=== PATIENT | male | born 2000 | race Hispanic/Latino ===

== ENCOUNTER 2024-02-27 22:04 | Emergency (ER) | payer BC ==
[~2024-02-27] VITALS: Ht 177.8 cm; Wt 84.8 kg
[2024-02-27 23:28] LABS: BASOPHILS # (AUTO) 0.03 K/uL (0.00-0.20); BASOPHILS % (AUTO) 0.2 % (0.0-5.0); EOSINOPHILS # (AUTO) 0.02 K/uL (0.00-0.70); EOSINOPHILS % (AUTO) 0.2 % (0.0-8.0); HEMATOCRIT 45.1 % (42-54); IMMATURE GRANULOCYTE ABSOLUTE 0.06 K/uL (0-1); LYMPHOCYTES % (AUTO) 15.5 % (21.0-51.0); MEAN CORPUSCULAR HEMOGLOBIN 29.9 pg (27.0-33.0); MEAN CORPUSCULAR HGB CONC 35.3 g/dL (32.0-36.0); MEAN CORPUSCULAR VOLUME 84.9 fL (79-99); MONOCYTES # (AUTO) 1.6 K/uL (0.1-1.0); MONOCYTES % (AUTO) 12.3 % (3.0-13.0); NEUTROPHILS # (AUTO) 9.4 K/uL (1.8-7.7); NEUTROPHILS % (AUTO) 71.3 % (40.0-77.0); PLATELET COUNT (AUTO) 321 K/uL (130-400); RED BLOOD CELL COUNT(AUTO) 5.31 MIL/uL (4.50-6.20); RED CELL DISTRIBUTION WIDTH 13.3 % (11.0-15.5); WHITE BLOOD COUNT (AUTO) 13.2 K/uL (4.8-10.8)
[2024-02-27] MEDS: ONDANSETRON 4MG INJ IVP ONE (23:37)
[2024-02-27 23:39] LABS: ADD UA MICROSCOPIC NO; APPEARANCE,URINE CLEAR (CLEAR); BILIRUBIN,URINE NEGATIVE (NEGATIVE); COLOR,URINE COLORLESS (YELLOW); GLUCOSE, URINE (UA) NEGATIVE (NEGATIVE); KETONES,URINE NEGATIVE (NEGATIVE); LEUKOCYTE ESTERASE ,URINE NEGATIVE Leu/uL (NEGATIVE); NITRATE,URINE NEGATIVE (NEGATIVE); OCCULT BLOOD,URINE NEGATIVE (NEGATIVE); PROTEIN,URINE NEGATIVE (NEGATIVE); UROBILINOGEN,URINE 0.2 mg/dL (0.2-1.0)
[2024-02-27 23:47] LABS: ALBUMIN 4.1 g/dL (3.5-5.0); BILIRUBIN,TOTAL 0.4 mg/dL (0.2-1.0); CREATININE 1.3 mg/dL (0.5-1.3); POTASSIUM 3.6 mmol/L (3.5-5.1); TOTAL PROTEIN, SERUM 7.5 g/dL (6.0-8.3)
[2024-02-28 01:08] VITALS: BP 135/83; PULSE 57; RESP 18; O2SAT 98
== END 2024-02-28 01:27 | disposition home or self-care (01) ==
LOC: EDH 22:04
DX: R07.89 Other chest pain (principal); I10 Essential (primary) hypertension; D72.829 Elevated white blood cell count, unspecified
CPT/HCPCS: 99284; 96374; 84484; 80053; 83690; 85025; 81003; 36415; 93005; J2405

== ENCOUNTER 2025-01-03 23:07 | Emergency (ER) | payer BC ==
[~2025-01-03] VITALS: Ht 177.8 cm; Wt 88.0 kg
[2025-01-03] MEDS: HYDROcodone/APAP 5/325 1 TAB TABLET PO ONE (23:28)
[2025-01-03] MEDS: AMOX/CLAV 875/125MG TAB PO ONE (23:28)
[2025-01-03] MEDS: teTANUS/diphthERIA TOXOID [ADULT] 0.5 ML VIAL IM ONE (23:30)
--- NOTE | 2025-01-03 23:47 | NUR ---
[facility] OFFICE WAS CALLED TO REPORT ANIMAL BITE.
--- NOTE | 2025-01-04 00:21 | NUR ---
WOUND CARE WAS DONE TO RIGHT SIDE OF CARE. 5 SMALL SUPERFICIAL WOUNDS NOTED TO RIGHT CHEEK AND BRIDGE OF NOSE. WOUND CARE INSTRUCTIONS GIVEN TO PT AND FAMILY.
[2025-01-04] MEDS ORDERED: IBUP-2070 PO (00:25)
[2025-01-04] MEDS ORDERED: AMOX1TAB16 PO (00:25)
--- NOTE | 2025-01-04 00:34 | ERN ---
ED Note History of Present Illness Stated Complaint: DOG BITE Chief Complaint: Animal Bite Time Seen by MD: 23:12 Time Seen by Midlevel: 23:15 Dictation: Mr. Mancuso is a 24-year-old male with no reported chronic health issues who presented to the emergency department this evening for evaluation after dog bite. He states that he was breaking up a dog fight esterase dog bit him in the face. He has five very small puncture/bite wounds to the right side of his face/cheek each measures less than 0.5 cm. No bleeding. There is minimal swelling. He has applied an ice pack. He does not know when he received his last tetanus shot. The small breed dog was a stray/owner operator unknown. Vaccination status unknown. He denies fever, chills, shortness of breath, cough, chest pain, palpitations, edema, abdominal pain, nausea, vomiting, hematemesis, constipation, diarrhea, melena, hematochezia, dysuria, headache, dizziness, or focal weakness/paresthesia Allergies: Coded Allergies: No Known Drug Allergies (Unverified Allergy, Unknown, 02/27/24) Past Medical History Past Medical History: Hypertension Surgical History: None PSYCH History: no pertinent psych hx Social History: Negative, Lives with family RN Note Reviewed/Agreed w/PFSH: Yes Review of System Dictation REVIEW OF SYSTEMS: CONSTITUTIONAL: Patient denies fevers, chills, sweats and weight changes. EYES: Patient denies any visual symptoms. EARS, NOSE, AND THROAT: No difficulties with hearing. No symptoms of rhinitis or sore throat. CARDIOVASCULAR: Patient denies chest pains, palpitations, orthopnea and paroxysmal nocturnal dyspnea. RESPIRATORY: No dyspnea on exertion, no wheezing or cough. GI: No nausea, vomiting, diarrhea, constipation, abdominal pain, hematochezia or melena. : No urinary hesitancy or dribbling. No nocturia or urinary frequency. No abnormal urethral discharge. MUSCULOSKELETAL: No myalgias or arthralgias. NEUROLOGIC: No chronic headaches, no seizures. Patient denies numbness, tingling or weakness. PSYCHIATRIC: Patient denies problems with mood disturbance. No problems with anxiety. ENDOCRINE: No excessive urination or excessive thirst. DERMATOLOGIC: Reports dog bite to right side of face/cheek Initial Vital Sign VS Vital Signs Date Time Temp Pulse Resp B/P (MAP) Pulse Ox O2 Delivery O2 Flow Rate FiO2 01/03/25 23:08 97.9 80 16 137/93 99 Room Air Physical Exam Dictation Vital signs: Reviewed. Constitutional: No acute distress. Non-toxic appearing. Head/Face: Normocephalic, atraumatic. Eyes: Periorbital areas with no swelling, redness, or edema. Lids and lashes are normal. Conjunctival injection is absent. Sclera anicteric. Pupils equal, round, reactive to light. ENT: Pinnas intact and no signs of trauma or erythema. Ear canals clear and no discharge. TMs no erythema. No nasal discharge or bleeding noted. Oropharynx with no exudate, redness, swelling, masses, exudates, or evidence of o bstruction. Uvula midline. Mucous membranes moist. Neck: Trachea midline, no masses palpated, and no cervical lymphadenopathy. No swelling. Supple, full range of motion. Chest/Axilla: No tenderness, no crepitus, no paradoxical movement, no retractions. Cardiovascular: Regular rate, regular rhythm, no murmur, no gallops. Symmetric pulses. No peripheral edema. Respiratory: Respirations even and unlabored. Lung sounds clear; no wheezes, rales or rhonchi. Gastrointestinal: Inspection is normal. No distention is appreciated. Bowel sounds are normal. No mass or organomegaly . There is no tenderness. No rebound. No rigidity. No voluntary or involuntary guarding. No No's sign. Neurological: Normal speech, gross motor function intact, gross sensory functio n intact. No focal weakness/Paresthesia. Musculoskeletal/Extremities: All extremities have full range of motion, no pain or tenderness on palpation. Symmetric pulses. Integumentary: Skin is normal color, warm and dry. Cap refill less than 2 seconds. There are five very small (approximately 0.25cm) puncture wounds to right cheek. No bleeding. There is minimal surrounding edema/erythema ED Course ED Course Orders Procedure Category Date Status Time *Nursing CPOE 01/03/25 Transmitted Communication: 23:18 Tetanus,Diphtheria PHA 01/03/25 Complete Tox [Adult] (Diphther 23:30 Amox/Clav 875/125mg PHA 01/03/25 Complete Tab (Augmentin 875-1 23:30 Hydrocodone/Apap PHA 01/03/25 Complete 5/325 (Davey 5/325mg) 23:30 Current Medications Medications (Trade) Dose Ordered Sig/Frandy Route PRN Reason Start Time Stop Time Status Last Admin Dose Admin Acetaminophen/ Hydrocodone Bitart (NORco 5/325MG) 1 tab ONCE ONCE PO 01/03/25 23:30 01/03/25 23:31 DC 01/03/25 23:28 Amoxicillin/ Clavulanate Potassium (Augmentin 875-125 Tablet) 1 each ONCE ONCE PO 01/03/25 23:30 01/03/25 23:31 DC 01/03/25 23:28 Tetanus/ Diphtheria Toxoids Adsorbed (DiphthERIA-teTANUS TOXOID [ADULT]/ DECAVAC) 0.5 ml ONCE ONCE IM 01/03/25 23:30 01/03/25 23:31 DC 01/03/25 23:30 Vital Signs Date Time Temp Pulse Resp B/P (MAP) Pulse Ox O2 Delivery O2 Flow Rate FiO2 01/03/25 23:08 97.9 80 16 137/93 99 Room Air Uneventful ED course. Vital signs stable; normotensive and afebrile with room air SpO2 99%. Small puncture wounds to the right cheek; sutures not needed. No drainage. There is minimal surrounding erythema. Tender to touch. Wounds were copiously irrigated; no foreign body/tooth noted. Triple antibiotic ointment was applied. Room he received tetanus toxoid update as well as initial dose of antibiotics; Augmentin. Findings were discussed with patient and significant other and all questions were answered. Medical Decision Making MDM MDM: Differential diagnosis: Dog bite, foreign body face Rationale: Tests considered and ordered secondary to shared decision making include: Examination Previous outside records reviewed: Old ER visits. Risk of complication and/or morbidity or mortality of patient management: None Medications-Per medication reconciliation Need for hospitalization: Patient does not meet criteria for hospitalization. Need for emergency major/minor surgery: No There are no social concerns with this patient. Prescription drug management: Augmentin, ibuprofen Prescriptions will include symptomatic care Patient's prior external medical records from other ER visits were reviewed by me as indicated. Prior testing and results from previous visits were reviewed. Prior tests were taken into account with medical decision making and resource utilization, independent historian/historians were used to obtain complete medical history. I independently interpreted the test that were performed, results were reviewed by me and considered findings on radiology if ordered. Medical management and examination interpretation discussions were had by me with other qualified healthcare professionals as indicated for the patient's care. DX & DISP Disposition: Discharge Departure Impression: Primary Impression: Dog bite Condition: Stable Scripts Ibuprofen (Ibuprofen) 600 Mg Tablet 600 MG PO Q6H PRN for PAIN, #15 TAB 0 Refills Prov: LUIS MOURA NP 01/04/25 Amoxicillin/Potassium Clav (Amox Tr-K Clv 875-125 mg Tab) 875 Mg-125 Mg Tablet 1 TAB PO BID for 10 Days, #20 TAB 0 Refills Prov: LUIS MOURA [employer] 01/04/25 Additional Instructions: Rest. Drink plenty of fluids. Wash her hands frequently. Wash gently with mild soap and water and pat dry. May apply antibiotic topical ointment. Wear sunscreen/hat. Continue antibiotic with Augmentin twice daily for 10 days. May take [id number] Tylenol or ibuprofen as needed for discomfort. Follow up with Law enforcement/animal control/public health department. Return to the emergency department for any worsening of symptoms or concerns. Referrals: VIRY REY (PCP) Time of Disposition: 00:28 LUIS MOURA NP Jan 04, 2025 00:34
[2025-01-04 00:38] VITALS: BP 128/84; PULSE 74; RESP 18; TEMP 97.7; O2SAT 99
== END 2025-01-04 00:46 | disposition home or self-care (01) ==
LOC: EDH 23:07
DX: S01.431A Puncture wound without foreign body of right cheek and temporomandibular area, initial encounter (principal); I10 Essential (primary) hypertension; W54.0XXA Bitten by dog, initial encounter; Y93.89 Activity, other specified; Y92.89 Other specified places as the place of occurrence of the external cause; Y99.8 Other external cause status
CPT/HCPCS: 90471; 90714; 99284

== ENCOUNTER 2025-07-04 20:01 | Emergency (ER) | payer BC ==
[~2025-07-04] VITALS: Ht 175.3 cm; Wt 83.9 kg
[~2025-07-04 20:01] MED LIST: AMOX1TAB16 PO; IBUP-1492 PO
--- NOTE | 2025-07-04 20:24 | ERN ---
ED Note History of Present Illness Stated Complaint: CHEST TIGHTNESS, TROUBLE BREATHING, HIGH B/P, DIZZ Chief Complaint: Chest Pain Time Seen by MD: 20:08 Time Seen by Midlevel: 20:08 Dictation: The patient is a 25-year-old male with a history of hypertension who presents to the emergency department with complaints of three days of on and off chest pain. Patient reports some chest pressure to the left side of his chest. Reports sharp pains only lasting a few sec. reports he had a elevated blood pressure today of 168/84. Reports some shortness of breath. Patient denies cough, recent travel or surgeries, chest trauma. Allergies: Coded Allergies: No Known Drug Allergies (Unverified Allergy, Unknown, 02/27/24) Home Meds Active Scripts Ibuprofen (Ibuprofen) 600 Mg Tablet, 600 MG PO Q6H PRN for PAIN, #15 TAB 0 Refills Prov:LUIS MOURA [facility] 01/04/25 Amoxicillin/Potassium Clav (Amox Tr-K Clv 875-125 mg Tab) 875 Mg-125 Mg Tablet, 1 TAB PO BID for 10 Days, #20 TAB 0 Refills Prov:LUIS MOURA [facility] 01/04/25 Past Medical History Past Medical History: Hypertension Surgical History: None Social History: Negative, Lives with family RN Note Reviewed/Agreed w/PFSH: Yes Review of System Dictation Constitutional: Negative for fever,chills, and weight loss Eyes: Negative for injury, pain,redness, and discharge ENT: Negative for injury,pain or swelling Cardiovascular: Negative for palpitations, and edema positive for chest pain Respiratory: Negative for cough, and wheezing, positive for shortness of breath Abdomen/GI: Negative for abdominal pain, nausea, vomiting, diarrhea, and constipation Back: Negative for injury and pain : Negative for injury, bleeding and discharge MS/Extremity: Negative for injury and deformity Skin: Negative for rash, and discoloration Neuro: Negative for headache, weakness, numbness, tingling, and seizure Psych: Negative for suicide ideation, homicidal ideation, and hallucinations Initial Vital Sign VS Vital Signs Date Time Temp Pulse Resp B/P (MAP) Pulse Ox O2 Delivery O2 Flow Rate FiO2 07/04/25 20:04 98.2 97 20 135/63 99 0 07/04/25 21:25 Room Air* 21 Physical Exam Dictation Vital Signs reviewed General Appearance: Alert, oriented x 3, no acute distress, well developed, nourished. Head and Face: non-traumatic. Eyes: PERRL, pink conjunctivas, eyelid no trauma, anterior chamber with arcus senilis. Ears: Pinnas intact and no signs of trauma or erythema ear canals clear and no discharge TM no erythema Nose: No discharge, no bleeding. Oropharynx: Mouth normal, tongue pink. pharynx clear,no erythema, tonsils no exudates, no abscesses noted, mucous membrane moist Neck: Supple, non-tender, no thyromegaly, no masses, no JVD, no bruits Breast:Deferred Chest:No tenderness, no crepitus, no paradoxical movement, no retractions Lungs:Clear, well-ventilated, symmetric, no rales, no wheezing, no rhonchi, no stridor, good breath sounds bilaterally Heart: Regular rate, regular rhythm, no murmur, no gallops Vascular: no peripheral edema, Abdomen: Soft, positive bowel sounds, nondistended, no guarding, nontender, no rebound, no masses no hepatomegaly, no splenomegaly, no No's sign, no hernias. Rectal: Deferred Genital: Deferred Neurological: Normal speech, motor function intact, sensory function intact Musculoskeletal: Neck nontender, full range of motion, back nontender, full range of motion, Extremities: nontender, full range of motion Skin: Color pink, dry, no turgor, no rash, no lacerations, no abrasions, no contusions. Lymphatic: Deferred Results (Laboratory/Radiology) Laboratory/Radiology Laboratory Tests Test 07/04/25 20:00 07/04/25 20:17 Urine Opiates Screen NEGATIVE (NEGATIVE) Urine Barbiturates Screen NEGATIVE (NEGATIVE) Urine Phencyclidine Screen NEGATIVE (NEGATIVE) Urine Amphetamines Screen NEGATIVE (NEGATIVE) Urine Benzodiazepines Screen NEGATIVE (NEGATIVE) Urine Cocaine Screen NEGATIVE (NEGATIVE) Urine Marijuana (THC) Screen NEGATIVE (NEGATIVE) White Blood Count 9.4 K/uL (4.8-10.8) Red Blood Count 5.25 MIL/uL (4.50-6.20) Hemoglobin 15.4 g/dL (14.0-18.0) Hematocrit 46.0 % (42-54) Mean Corpuscular Volume 87.6 fL (79-99) Mean Corpuscular Hemoglobin 29.3 pg (27.0-33.0) Mean Corpuscular Hemoglobin Concent 33.5 g/dL (32.0-36.0) Red Cell Distribution Width 12.8 % (11.0-15.5) Platelet Count 297 K/uL (130-400) Mean Platelet Volume 10.9 fL (7.5-10.5) H Immature Granulocyte % (Auto) 0.5 % (0-1) Neutrophils (%) (Auto) 58.1 % (40.0-77.0) Lymphocytes (%) (Auto) 25.5 % (21.0-51.0) Monocytes (%) (Auto) 9.1 % (3.0-13.0) Eosinophils (%) (Auto) 6.1 % (0.0-8.0) Basophils (%) (Auto) 0.7 % (0.0-5.0) Neutrophils # (Auto) 5.5 K/uL (1.8-7.7) Lymphocytes # (Auto) 2.4 K/uL (1.0-4.8) Monocytes # (Auto) 0.9 K/uL (0.1-1.0) Eosinophils # (Auto) 0.57 K/uL (0.00-0.70) Basophils # (Auto) 0.07 K/uL (0.00-0.20) Absolute Immature Granulocyte (auto 0.05 K/uL (0-1) Nucleated Red Blood Cells 0.0 % (0.0-0.19) Sodium Level 134 mmol/L (136-145) L Potassium Level 3.6 mmol/L (3.5-5.1) Chloride Level 100 mmol/L (101-111) L Carbon Dioxide Level 31 mmol/L (21-32) Blood Urea Nitrogen 9 mg/dL (7-18) Creatinine 1.1 mg/dL (0.5-1.3) Glomerular Filtration Rate Calc 95 mL/min (>90) Random Glucose 96 mg/dL (70-105) Total Calcium 9.1 mg/dL (8.5-10.1) Magnesium Level 2.00 mg/dL (1.80-2.40) Total Creatine Kinase 133 U/L (21-232) Troponin I High Sensitivity 5 ng/L (4-75) Lipase 47 U/L (16-77) REASON: cp ORDERING PHYSICIAN: KAELYN TAVERA PROCEDURE: CXR1VW - CHEST 1VW EXAM: CR Chest, 1 View. CLINICAL HISTORY: cp COMPARISON: None provided. FINDINGS: LUNGS: There is no mass, infiltrate, or acute pulmonary abnormality. PLEURAL SPACES: No pleural effusion or pneumothorax. MEDIASTINUM: Cardiac size and mediastinal contours within normal limits. BONES: No aggressive appearing osseous lesion seen. IMPRESSION: No acute cardiopulmonary pathology is evident. /[place] Labs Reviewed?: Yes EKG: (+) rhythm (Sinus rhythm) EKG Comment: Date:07/04/2025 Time:1999 Ventricular rate:94 CA interval:132 QRS duration:92 QT/QTc:330/413 EKG interpretation: Sinus rhythm Reviewed by ED Attending no STEMI ED Course ED Course Orders Procedure Category Date Status Time Cbc With Differential LAB 07/04/25 Complete 20:14 Chest 1vw RAD 07/04/25 Resulted 20:14 12 Lead Ekg Tracing- EKG 07/04/25 Complete Technical 20:14 Magnesium LAB 07/04/25 Complete 20:14 Creatine Kinase, Total LAB 07/04/25 Complete 20:14 Troponin I High LAB 07/04/25 Complete Sensitivity 20:14 Basic Metabolic Panel LAB 07/04/25 Complete 20:14 Drug Screen Urine LAB 07/04/25 Complete 20:14 Lipase LAB 07/04/25 Complete 20:18 Ketorolac PHA 07/04/25 Complete Tromethamine 30mg/Ml 21:00 Current Medications Medications (Trade) Dose Ordered Sig/Frandy Route PRN Reason Start Time Stop Time Status Last Admin Dose Admin Ketorolac Tromethamine (toRADol) 30 mg ONCE ONCE IVP 07/04/25 21:00 07/04/25 21:03 DC 07/04/25 21:14 Vital Signs Date Time Temp Pulse Resp B/P (MAP) Pulse Ox O2 Delivery O2 Flow Rate FiO2 07/04/25 21:25 98.8 75 18 125/66 99 Room Air* 0 21 07/04/25 20:04 98.2 97 20 135/63 99 0 HEART Score Response (Comments) Value History: Low suspicion (0) 0 EKG: Normal 0 Age: < 45yrs (0) 0 Risk Factors: 1-2 risk factors (+1) 1 Initial Troponin: Normal limit (0) 0 Total 1 Medical Decision Making MDM The patient is a 25-year-old male with a history of hypertension who presents to the emergency department with complaints of three days of on and off chest pain. Patient reports some chest pressure to the left side of his chest. Reports sharp pains only lasting a few sec. reports he had a elevated blood pressure today of 168/84. Reports some shortness of breath. Patient denies cough, recent travel or surgeries, chest trauma. CBC showed no leukocytosis, no anemia, chemistry showed mild hyponatremia, mild hypochloremia, negative troponin, negative lipase. Urinalysis unremarkable. Chest x-ray showed no acute pathology. Patient reported left-sided chest pain that only lasts a few sec. reports an episode of elevated blood pressure. Blood pressure has been stable during ER stay. Patient reports some dizziness when he went running but denies any current dizziness. Patient with low risk for cardiac etiology. Patient is slightly tachycardic in the 90s arrival but now in the 80s without any intervention. Patient reports improving in chest pain with medication administration. Patient in no acute distress, nontoxic appearance, neurologically intact. Patient will be discharged to follow up with PCP. Differential diagnosis: ACS, costochondritis, pneumonia, pneumothorax, anxiety Need for hospitalization: Patient does not meet criteria for hospitalization. There are no social concerns with this patient. DX & DISP Disposition: Discharge Departure Impression: Primary Impression: Atypical chest pain Condition: Stable Additional Instructions: Your labs were unremarkable. Please follow up with your primary doctor in 1-2 days. If anything worsens please return to ER. FOLLOW-UP WITH PRIMARY CARE PROVIDER IN 1 TO 2 DAYS. TAKE MEDICATIONS DIRECTED HERE IN THE EMERGENCY ROOM. OKAY TO CONTINUE HOME MEDICATIONS UNLESS OTHERWISE DISCUSSED DURING YOUR VISIT IN THE EMERGENCY ROOM TODAY. RETURN TO YOUR NEAREST EMERGENCY ROOM IF SYMPTOMS WORSEN OR IF THERE IS NO IMPROVEMENT. CALL 911 IF YOU NEED IMMEDIATE ASSISTANCE. TAKE TYLENOL [id number] NEEDED AND IF NO CONTRAINDICATIONS ARE PRESENT. INCREASE ORAL HYDRATION. A WOUND CULTURE OR URINE CULTURE WAS ORDERED HERE IN THE EMERGENCY ROOM DEPARTMENT PLEASE FOLLOW-UP WITH PRIMARY CARE PROVIDER AND ADVISE THEM TO GET REPEAT PORTS FROM OUR FACILITY. IF YOU HAD ANY GABBY WRAP/SPLINTS THAT WERE APPLIED HERE, PLEASE DO NOT REMOVE THEM UNTIL YOU SEE YOUR PRIMARY CARE OR SPECIALTY. Referrals: VIRY REY (PCP) Time of Disposition: 22:07 I have reviewed the case, and I agree with, Diagnosis and Plan KAELYN TAVERA Jul 04, 2025 20:24
[2025-07-04 20:28] LABS: IMMATURE GRANULOCYTE ABSOLUTE 0.05 K/uL (0-1); NUCLEATED RED BLOOD CELLS 0.0 % (0.0-0.19); PLATELET COUNT (AUTO) 297 K/uL (130-400); RED BLOOD CELL COUNT(AUTO) 5.25 MIL/uL (4.50-6.20); RED CELL DISTRIBUTION WIDTH 12.8 % (11.0-15.5); WHITE BLOOD COUNT (AUTO) 9.4 K/uL (4.8-10.8)
[2025-07-04 20:37] LABS: CREATININE 1.1 mg/dL (0.5-1.3); GLOMERULAR FILTR. RATE CALC 95.0 mL/min (>90); GLUCOSE,RANDOM 96.0 mg/dL (70-105); SODIUM SERUM 134.0 mmol/L (136-145); UREA NITROGEN, BLOOD 9.0 mg/dL (7-18)
[2025-07-04 20:42] LABS: CREATINE KINASE, TOTAL 133.0 U/L (21-232)
[2025-07-04 20:44] LABS: AMPHET/METH SCREEN,URINE NEGATIVE (NEGATIVE); BARBITURATE SCREEN, URINE NEGATIVE (NEGATIVE); CANNABINOID SCREEN,URINE NEGATIVE (NEGATIVE); COCAINE SCREEN,URINE NEGATIVE (NEGATIVE)
--- NOTE | 2025-07-04 20:52 | HMCIMG ---
EXAM: CR Chest, 1 View. CLINICAL HISTORY: cp COMPARISON: None provided. FINDINGS: LUNGS: There is no mass, infiltrate, or acute pulmonary abnormality. PLEURAL SPACES: No pleural effusion or pneumothorax. MEDIASTINUM: Cardiac size and mediastinal contours within normal limits. BONES: No aggressive appearing osseous lesion seen. IMPRESSION: No acute cardiopulmonary pathology is evident. /[place]
--- NOTE | 2025-07-04 21:15 | EKG ---
[facility] Test Date: 2025-07-04 Test Time: 20:00:44 Pat Name: NORMAN RICKETTS Department: ED Room: Gender: M [employer] Picker: [id number] : 2000 Requested By: KAELYN TAVERA Order Number: [id number] Reading MD: Sofia Anaya Measurements Intervals [place] Rate: 94 P: 74 NC: 132 QRS: 14 QRSD: 92 T: 4 QT: 330 QTc: 413 Interpretive Statements Sinus rhythm Compared to ECG 02/27/2024 22:18:51 ST (T wave) deviation no longer present Electronically Signed On 07-05-2025 13:12:20 [employer] by Sofia Anaya Please click the below link to view image of tracing.
[2025-07-04 21:25] VITALS: BP 125/66; PULSE 75; RESP 18; TEMP 98.8; O2SAT 99
== END 2025-07-04 22:19 | disposition home or self-care (01) ==
LOC: EDH 20:01
DX: R07.89 Other chest pain (principal); R06.02 Shortness of breath; I10 Essential (primary) hypertension
CPT/HCPCS: 99284; 96374; 71045; 82550; 83735; 84484; 80048; 80305; 83690; 85025; 36415; 93005; J1885